=== PATIENT | female | born 1970 | race Caucasian/White ===

== ENCOUNTER → 2018-03-10 08:00 | Outpatient (CLI) | payer BC, SELFPAY | PROVIDERS: Family Provider Family Medicine; PCP Family Medicine | DX: Z23 Encounter for immunization (principal) | CPT/HCPCS: 90471; 90686 ==

== ENCOUNTER 2019-01-19 12:47 | Emergency (ER) | payer BC, SELFPAY ==
[2019-01-19 12:50] VITALS: BP 131/64; PULSE 58; RESP 18; TEMP 36.5; O2SAT 100
[2019-01-19 13:00] VITALS: BP 148/72; PULSE 61; RESP 19; O2SAT 97
[2019-01-19] MEDS: EPINEPHrine 1 MG/ML AMPUL (13:04)
--- NOTE | 2019-01-19 13:06 | ED.ALLEREA ---
HPI - Allergic Reaction General Chief complaint: Allergic Reaction Stated complaint: Anaphylaxis to bee sting Time Seen by Provider: 01/19/19 12:54 Source: patient Mode of arrival: ambulatory Limitations: no limitations History of Present Illness HPI narrative: Patient comes emergency department complaining of bee stings while looking [place] in [place]. Patient states she was stung several times both on the hand and on 1 of her legs, and that shortly thereafter, she began to feel as though her tongue was swelling. Patient states that she has never had this kind of reaction with a bee sting previously. She states she has had an itchy rash once before after staying, and after other kinds of insect envenomation is, she has experienced swelling of the affected extremity. However, she has never had any sort of or pharyngeal manifestations. Patient states she is not having trouble breathing, and can speak normally, but feels as though her tongue is stiff and large, and it is difficult to swallow. Patient denies any rash. No lightheadedness. No vomiting. No other complaints at this time. Patient had written her bike [place], and was able to ride out without difficulty before coming here. Related Data Previous Rx's Medication Instructions Recorded epinephrine [EpiPen] 0.3 mg IM Q15M PRN #1 each 01/19/19 prednisone 60 mg PO DAILY #9 tab 01/19/19 Allergies Allergy/AdvReac Type Severity Reaction Status Date / Time No Known Drug Allergies Allergy Verified 10/22/18 09:54 Review of Systems Review of Systems ROS Unobtainable: All systems reviewed & are unremarkable except as noted in HPI and below Constitutional Constitutional: Denies chills, Denies fatigue, Denies fever(s), Denies frequent falls, Denies lethargy and Denies weakness Eyes Eyes: Denies change in vision, Denies eye discharge, Denies irritation and Denies loss of vision ENT Ears, Nose, Mouth, and Throat: Denies change in voice, Denies dizziness, Denies neck pain and Denies sore throat Comments: Tongue swelling Cardiovascular Cardiovascular: Denies chest pain, Denies irregular heart rhythm, Denies lightheadedness, Denies palpitations, Denies dyspnea, Denies dyspnea on exertion and Denies orthopnea Respiratory Respiratory: Denies cough, Denies dyspnea, Denies dyspnea on exertion and Denies wheezing Gastrointestinal Gastrointestinal: Denies abdominal pain, Denies change in bowel habits, Denies diarrhea, Denies nausea and Denies vomiting Genitourinary Genitourinary: Denies hematuria, Denies flank pain, Denies urinary incontinence and Denies urinary urgency Musculoskeletal Musculoskeletal: Denies back pain, Denies muscle weakness, Denies neck pain, Denies numbness and Denies tingling Integumentary/Breasts Skin/Breast: Denies pruritus, Denies erythema, Denies rash and Denies wounds Neurologic Neurologic: Denies behavioral changes, Denies confusion, Denies dizziness, Denies frequent falls, Denies loss of vision, Denies numbness, Denies tingling and Denies weakness Psychiatric Psychiatric: Denies anxiety, Denies behavioral changes, Denies confusion, Denies depression, Denies homicidal ideation and Denies suicidal ideation Endocrine Endocrine: Denies fatigue, Denies flushing and Denies palpitations Hematologic/Lymphatic Hematologic/Lymphatic: Denies easy bruising Allergic/Immunologic Allergic/Immunologic: Denies urticaria and Denies wheezing [facility] Medical History Healthy adult (Acute) Surgical History No pertinent past surgical history (Acute) Social History Smoking Status: Never smoker Social History Smoking Status: Never smoker Exam Initial Vital Signs Initial Vital Signs: Vital Signs Temperature 97.7 F 01/19/19 12:50 Pulse Rate 58 L 01/19/19 12:50 Respiratory Rate 18 01/19/19 12:50 Blood Pressure 131/64 01/19/19 12:50 Pulse Oximetry 100 01/19/19 12:50 Const General: cooperative and well developed Nutritional Appearance: well nourished Orientation: alert, awake, oriented x3 and not confused HENPR Head: normocephalic and atraumatic Ears: external ears normal Nose: external nose normal and No nasal discharge Face and sinus: face symmetric and No dry mucous membranes Mouth: oral mucosae normal, tongue normal (No obvious edema.) and moist mucous membranes Teeth and gingiva: dentition normal Throat: tonsils normal and uvula midline (No uvular enlargement) Eyes General: appearance normal, both eyes and all related structures Eyelids: eyelids normal Conjunctivae: conjunctivae normal Sclera: sclerae normal Pupils: PERRL EOM: EOM intact bilaterally Neck Neck: normal visual inspection, trachea midline, No lymphadenopathy, No midline deformity and No JVD Lymphatic: No lymphedema Chest Chest: normal inspection of the chest Resp Effort & Inspection: normal respiratory effort, able to speak in complete sentences, no respiratory distress and no use of accessory muscles Auscultation: clear to auscultation bilaterally, no rales, no rhonchi and no wheezes Cardio Rate: regular rate Rhythm: regular rhythm Heart Sounds: no click, no gallops, no murmurs and no rubs Pulses: normal peripheral pulses GI Inspection: non-distended Palpation: soft, no hepatosplenomegaly, No guarding, No pulsatile mass and No tender Auscultation: normal bowel sounds Back/Spine/Pelvis Back: No CVA tenderness Cervical Spine: cervical ROM normal and No pain with cervical ROM Thoracic/Lumbar Spine: thoracic and lumbar spine normal to inspection Skin General: no rashes or lesions noted, No jaundice and No petechiae Neuro General: alert, oriented x3, gait normal and no focal motor deficits Speech: speech normal Extrem General: full ROM, no clubbing, cyanosis or edema, no pedal edema and no calf tenderness Psych Appearance: well kempt Mental Status: mental status grossly normal Attitude: cooperative Thought Content: normal and suicidality Judgment: judgment good Course Course Course Narrative: Patient was treated symptomatically in the emergency department with IM epinephrine, Decadron, and Pepcid. She had already taken Benadryl on the trail. Patient began to feel better within minutes of receiving epinephrine. She was observed in the emergency department for approximately an hour and found to be doing better. Patient was deemed stable for discharge home. We have discussed home management of symptoms, as well as the usual indications for return. Orders Ordered: Discontinued Medications Dexamethasone (Decadron) 10 mg IV NOW ONE Stop: 01/19/19 13:06 Last Admin: 01/19/19 13:11 Dose: 10 mg Documented by: JOSE Famotidine (Pepcid) 20 mg in 50 mls @ 200 mls/hr IV NOW ONE Stop: 01/19/19 13:19 Last Infusion: 01/19/19 13:38 Dose: 0 mls/hr Documented by: Admin: 01/19/19 13:11 Dose: 200 mls/hr Documented by: JOSE Vital Signs Vital signs: Vital Signs - 8 hr 01/19/19 12:50 Temperature 97.7 F Pulse Rate 58 L Respiratory Rate 18 Blood Pressure 131/64 Pulse Oximetry 100 MDM - Allergic Reaction Medical Records Attestation: I reviewed the patient's medical records. Discharge Plan Departure Patient Disposition: Home Clinical Impression: Allergic reaction to bee sting Anaphylaxis Qualifiers: Encounter type: initial encounter Qualified Code(s): T78.2XXA - Anaphylactic shock, unspecified, initial encounter Discharge Date/Time: 01/19/19 14:20 Instructions: DI for Anaphylaxis Prescriptions: New prednisone 20 mg tablet 60 mg PO DAILY Qty: 9 RF: 0 epinephrine [EpiPen] 0.3 mg/0.3 mL auto-injector 0.3 mg IM Q15M PRN (Reason: anaphylaxis) Qty: 1 RF: 0 Referrals: Vitaliy Ornelas MD [Primary Care Provider] -
[2019-01-19] MEDS: DEXAMETHASONE 10 MG/ML VIAL IV (13:11)
[2019-01-19] MEDS: FAMOTIDINE 20 MG/50 ML PIGGYBACK 200 MG IV (13:11)
[2019-01-19 14:18] VITALS: BP 119/71; PULSE 52; RESP 16; O2SAT 97
== END 2019-01-19 14:20 | disposition home or self-care (01) ==
PROVIDERS: Emergency Provider Emergency Medicine; PCP Family Medicine
DX: T63.441A Toxic effect of venom of bees, accidental (unintentional), initial encounter (principal)
CPT/HCPCS: 96365; 96375; 99283; 99284; J0171; J1100

== ENCOUNTER 2019-01-20 19:41 | Emergency (ER) | payer BC, SELFPAY ==
[2019-01-20 19:52] VITALS: BP 132/71; PULSE 60; RESP 15; TEMP 36.6; O2SAT 98; BMI 25.8
--- NOTE | 2019-01-20 19:57 | ED.ALLEREA ---
HPI - Allergic Reaction <MATIAS Strong - Last Filed: 01/20/19 22:25> General Chief complaint: Allergic Reaction Stated complaint: thinks having an allergic reaction Time Seen by Provider: 01/20/19 19:44 Source: patient Mode of arrival: ambulatory Limitations: no limitations History of Present Illness HPI narrative: 48-year-old female presents emergency department stay complaining of airway swelling. She states she was seen yesterday in the emergency department after being stung multiple times by bees on experience tongue swelling. She was treated in the emergency department with epinephrine, Solu-Medrol, Benadryl, and famotidine. Patient returned home, she took 1 Benadryl this morning and another Benadryl around 5:00 p.m.. However, 20 minutes ago she started to experience throat swelling and return to the ED. She denies any shortness of breath, chest pain, recurrent bee stings, dizziness, syncope, abdominal pain, vomiting, nausea, or other concerning symptoms. Related Data Previous Rx's Medication Instructions Recorded epinephrine [EpiPen] 0.3 mg IM Q15M PRN #1 each 01/19/19 prednisone 60 mg PO DAILY #9 tab 01/19/19 epinephrine 0.3 mg IM Q15M PRN #2 each 01/20/19 prednisone 50 mg PO DAILY 5 Days #5 tab 01/20/19 Allergies Allergy/AdvReac Type Severity Reaction Status Date / Time No Known Drug Allergies Allergy Verified 01/20/19 19:52 Review of Systems <MATIAS Strong - Last Filed: 01/20/19 22:25> Review of Systems Narrative: REVIEW OF SYSTEMS: GENERAL: Denies fever or chills. HENT: Patient reports a sensation of airway swelling, see HPI. No head trauma. EYES: No loss of vision, double vision, eye pain, or irritation. CARDIOVASCULAR: No chest pain or syncope. RESPIRATORY: No shortness of breath or cough. GASTROINTESTINAL: No nausea, vomiting, diarrhea, or constipation. GENITOURINARY: No flank pain or dysuria. MUSCULOSKELETAL: No pain, weakness, or deformities. INTEGUMENTARY: No rash, lesions, or pruritus. NEURO: No numbness, tingling, memory loss, or confusion. PSYCH: No behavior or mood changes. PFSH <MATIAS Strong - Last Filed: 01/20/19 22:25> Medical History Healthy adult (Acute) Surgical History No pertinent past surgical history (Acute) Social History Smoking Status: Never smoker Social History Smoking Status: Never smoker Exam <MATIAS Strong - Last Filed: 01/20/19 22:25> Initial Vital Signs Initial Vital Signs: Vital Signs Temperature 97.9 F 01/20/19 19:52 Pulse Rate 60 01/20/19 19:52 Respiratory Rate 15 01/20/19 19:52 Blood Pressure 132/71 01/20/19 19:52 Pulse Oximetry 98 01/20/19 19:52 PHYSICAL EXAMINATION: GENERAL: Well groomed, alert, and cooperative. Answers questions promptly and appropriately. Vital signs noted. Patient is speaking in full sentences during initial examination. HENT: Normocephalic, atraumatic. Ear canals patent. Oral mucosa is pink and moist. Oropharynx has slight erythema, tongue was not enlarged, patient was maintaining secretions. After administration of epi patient stated that her throat was swelling decreased. Patient was able to drink an eat foods during her stay in the emergency department. She states she continued to feel some throat irritation during observation, this did not increase or decrease during her stay.. EYES: Conjunctiva pink, sclera white, no periorbital swelling. CHEST: Normal to inspection and without deformities. CARDIOVASCULAR: S1 and S2 sounds normal. Regular rate and rhythm, no murmurs, clicks, or bruits. No pedal edema. RESPIRATORY: Normal respiratory rate, trachea midline, airway patent. No stridor, nasal flaring or accessory muscle use. Lungs are clear in all khalil without wheeze, rhonchi, or crackles. GASTROINTESTINAL: Bowel sounds normoactive. Abdomen is soft and non-tender. No organomegaly. MUSCULOSKELETAL: Normal gait and coordination. Equal tone and mass bilaterally. EXTREMITIES: CMS intact. Moves all extremities. SKIN: Warm, dry, soft, appropriate color for ethnicity. No lesions, rashes, or wounds. NEURO: Alert and Oriented X 3. Good coordination. No ataxia, or sensory deficits, or cognitive issues. PSYCH: Appropriate affect and mood. <Willis Wolf DO - Last Filed: 01/20/19 23:59> Initial Vital Signs Initial Vital Signs: Vital Signs Temperature 97.9 F 01/20/19 19:52 Pulse Rate 60 01/20/19 19:52 Respiratory Rate 15 01/20/19 19:52 Blood Pressure 132/71 01/20/19 19:52 Pulse Oximetry 98 01/20/19 19:52 Course <Madhavi JacksonMATIAS - Last Filed: 01/20/19 22:25> Course Course Narrative: Patient was given 0.3 mg of I M epinephrine after administration she reported a decrease in throat swelling. She was also given a L fluid, Pepcid, Benadryl, and 125 of Solu-Medrol. After the initial decrease the swelling patient had some irritation and sensations in the back of her throat that did not decrease or increase during her stay in the emergency department. Patient was observed for over 2 hours without change. Patient was able to drink and eat before discharge. She reported some throat discomfort while drinking cranberry juice. A GI cocktail was administered without much change. Serial reexaminations of her throat and lungs occurred-patient had no wheezes any time. Her tongue was not enlarged at any time. The only observation in her mouth was slight erythema to the back for oropharynx. Once patient was discharged her voice was not hoarse, she was talking in full sentences, and she was able tolerate her secretions. I consulted with Dr. Wolf care at this time of her discharge, he concurred with the plan of care. Discussed with patient that signs and has been over 24 hours from the initial bee sting that she was safe to return home. She may continue to have some slight throat irritation for which she she is to take the prednisone for. She also reported she has epinephrine at home as well. The patient has an appointment tomorrow with her primary care provider at 9:00 a.m. which she plans to attend for re-evaluation. Patient was able to ambulate around the department without dizziness. She states her will be at home with her as well. Very strict return precautions were given. Orders Ordered: Discontinued Medications Al Hydrox/Mg Hydrox/Simethicone 20 ml/ Lidocaine HCl 15 ml 0 ml PO NOW ONE Stop: 01/20/19 21:16 Last Admin: 01/20/19 21:32 Dose: 35 ml Documented by: [facility] Diphenhydramine HCl (Benadryl) 25 mg IV NOW ONE Stop: 01/20/19 21:19 Last Admin: 01/20/19 21:31 Dose: 25 mg Documented by: [facility] Epinephrine HCl (Adrenalin) 0.3 mg IM NOW ONE Stop: 01/20/19 19:54 Last Admin: 01/20/19 20:00 Dose: 0.3 mg Documented by: [facility] Famotidine (Pepcid) 20 mg in 50 mls @ 200 mls/hr IV NOW ONE Stop: 01/20/19 20:10 Last Infusion: 01/20/19 20:18 Dose: 0 mls/hr Documented by: [facility] Admin: 01/20/19 20:01 Dose: 200 mls/hr Documented by: [facility] Sodium Chloride (Normal Saline 0.9%) 1,000 mls @ 1,000 mls/hr IV BOLUS ONE Stop: 01/20/19 20:56 Last Infusion: 01/20/19 21:10 Dose: 0 mls/hr Documented by: [facility] Admin: 01/20/19 20:00 Dose: 1,000 mls/hr Documented by: [facility] Lidocaine HCl (Viscous Lidocaine 2%) 15 ml PO NOW ONE Stop: 01/20/19 21:25 Last Admin: 01/20/19 21:33 Dose: Not Given Documented by: [facility] Methylprednisolone (Solu-Medrol 125 Mg Vial) 125 mg IV NOW ONE Stop: 01/20/19 19:54 Last Admin: 01/20/19 20:01 Dose: 125 mg Documented by: [facility] Ondansetron HCl (Zofran) 4 mg IV NOW ONE Stop: 01/20/19 21:16 Last Admin: 01/20/19 21:32 Dose: 4 mg Documented by: [facility] Prednisone (Deltasone 20 Mg Prepack) 1 bottle MISC SEEINSTR ONE Stop: 01/20/19 22:07 Last Admin: 01/20/19 22:31 Dose: 1 bottle [facility]: [facility] Vital Signs Vital signs: Vital Signs - 8 hr 01/20/19 19:52 01/20/19 20:06 01/20/19 21:11 Temperature 97.9 F Pulse Rate 60 58 L 60 Respiratory Rate 15 24 19 Blood Pressure 132/71 Blood Pressure [Left Arm] 125/66 116/60 Pulse Oximetry 98 99 100 01/20/19 21:49 Temperature Pulse Rate 65 Respiratory Rate 19 Blood Pressure Blood Pressure [Left Arm] 116/62 Pulse Oximetry 96 <Willis Wolf, DO - Last Filed: 01/20/19 23:59> Orders Ordered: Discontinued Medications Al Hydrox/Mg Hydrox/Simethicone 20 ml/ Lidocaine HCl 15 ml 0 ml PO NOW ONE Stop: 01/20/19 21:16 Last Admin: 01/20/19 21:32 Dose: 35 ml Documented by: [facility] Diphenhydramine HCl (Benadryl) 25 mg IV NOW ONE Stop: 01/20/19 21:19 Last Admin: 01/20/19 21:31 Dose: 25 mg Documented by: [facility] Epinephrine HCl (Adrenalin) 0.3 mg IM NOW ONE Stop: 01/20/19 19:54 Last Admin: 01/20/19 20:00 Dose: 0.3 mg Documented by: [facility] Famotidine (Pepcid) 20 mg in 50 mls @ 200 mls/hr IV NOW ONE Stop: 01/20/19 20:10 Last Infusion: 01/20/19 20:18 Dose: 0 mls/hr Documented by: [facility] Admin: 01/20/19 20:01 Dose: 200 mls/hr Documented by: [facility] Sodium Chloride (Normal Saline 0.9%) 1,000 mls @ 1,000 mls/hr IV BOLUS ONE Stop: 01/20/19 20:56 Last Infusion: 01/20/19 21:10 Dose: 0 mls/hr Documented by: [facility] Admin: 01/20/19 20:00 Dose: 1,000 mls/hr Documented by: [facility] Lidocaine HCl (Viscous Lidocaine 2%) 15 ml PO NOW ONE Stop: 01/20/19 21:25 Last Admin: 01/20/19 21:33 Dose: Not Given Documented by: [facility] Methylprednisolone (Solu-Medrol 125 Mg Vial) 125 mg IV NOW ONE Stop: 01/20/19 19:54 Last Admin: 01/20/19 20:01 Dose: 125 mg Documented by: RENE Ondansetron HCl (Zofran) 4 mg IV NOW ONE Stop: 01/20/19 21:16 Last Admin: 01/20/19 21:32 Dose: 4 mg Documented by: RENE Prednisone (Deltasone 20 Mg Prepack) 1 bottle MISC SEEINSTR ONE Stop: 01/20/19 22:07 Last Admin: 01/20/19 22:31 Dose: 1 bottle Documented by: [facility] Vital Signs Vital signs: Vital Signs - 8 hr 01/20/19 19:52 01/20/19 20:06 01/20/19 21:11 Temperature 97.9 F Pulse Rate 60 58 L 60 Respiratory Rate 15 24 19 Blood Pressure 132/71 Blood Pressure [Left Arm] 125/66 116/60 Pulse Oximetry 98 99 100 01/20/19 21:49 Temperature Pulse Rate 65 Respiratory Rate 19 Blood Pressure Blood Pressure [Left Arm] 116/62 Pulse Oximetry 96 MDM - Allergic Reaction <MATIAS Strong - Last Filed: 01/20/19 22:25> Medical Records Attestation: I reviewed the patient's medical records. Lab Data Attestation: I reviewed the patient's lab results. MDM Narrative Medical decision making narrative: I suspect that patient's symptoms are ongoing from yesterday's reaction. This is most likely due to the fact that patient was not aware that she had a prednisone prescription and did not have any continued steroids. Since the initial urgent reaction was well over 24 hours ago and her throat discomfort has been very stable throughout the emergency department stay, she is a candidate for discharge. She is hemodynamically stable, does not appear to be in any distress, and does her secretions, and her exam is completely benign. Differential also includes the start of a viral illness, acid reflux from allergic reaction causing her discomfort, and postnasal drip causing her discomfort. Refractory anaphylaxis that of likely as patient did not exhibit hypotension, hives, confusion, dizziness, swollen time, or other concerning symptoms. Patient is also started on steroids, she was given a prepack to take home. She also reports she has epinephrine at home. Discharge Plan Departure Patient Disposition: Home Clinical Impression: Allergic reaction to bee sting Discharge Date/Time: 01/20/19 22:38 Instructions: DI for Anaphylaxis Activity Restrictions/Additional Instructions: Thank you for entrusting me with your care today. As discussed, it appears you had another anaphylactic reaction to the bee stings from yesterday. You were given a dose of epinephrine, Solu-Medrol, Pepcid, and Benadryl. Please take the prednisone as prescribed for for 5 days and follow up with your primary care provider tomorrow as scheduled. You may take Claritin, Benadryl, another antihistamine as well. Additionally, if he continued to have acid reflux or abdominal pain you can take Pepcid or Zantac. If any symptoms worsen such as shortness of breath, increased airway irritation, dizziness, syncope, hives, erythema, or other concerning symptoms please return to the emergency department immediately. I have also included a prescription for an epinephrine pen please keep this with you at all times especially outdoors. Prescriptions: New prednisone 50 mg tablet 50 mg PO DAILY 5 Days Qty: 5 RF: 0 epinephrine 0.3 mg/0.3 mL auto-injector 0.3 mg IM Q15M PRN (Reason: anaphylaxis) Qty: 2 RF: 0 No Action prednisone 20 mg tablet 60 mg PO DAILY Qty: 9 RF: 0 epinephrine [EpiPen] 0.3 mg/0.3 mL auto-injector 0.3 mg IM Q15M PRN (Reason: anaphylaxis) Qty: 1 RF: 0 Referrals: Vitaliy Ornelas MD [Primary Care Provider] - <Willis Wolf DO - Last Filed: 01/20/19 23:59> Sign Out Provider Sign Out Attestation: I was available for consultation during this patient's emergency department encounter
[2019-01-20] MEDS: EPINEPHrine 1 MG/ML AMPUL 0.3 MG IM (20:00)
[2019-01-20] MEDS: SODIUM CHLORIDE 0.9% 1,000 ML 1000 ML IV (20:00)
[2019-01-20] MEDS: methylPREDNISolone 125 MG/2 ML VIAL IV (20:01)
[2019-01-20] MEDS: FAMOTIDINE 20 MG/50 ML PIGGYBACK 200 MG IV (20:01)
[2019-01-20 20:06] VITALS: BP 125/66; PULSE 58; RESP 24; O2SAT 99
[2019-01-20 21:11] VITALS: BP 116/60; PULSE 60; RESP 19; O2SAT 100
[2019-01-20] MEDS: diphenhydrAMINE 50 MG/ML VIAL 25 MG IV (21:31)
[2019-01-20] MEDS: ONDANSETRON 4 MG/2 ML INJ IV (21:32)
[2019-01-20] MEDS: MAG HYDROX/ALUMINUM/SIMETH SUS 20 ML, LIDOCAINE VISCOUS 2% 15 ML PO (21:32)
[2019-01-20 21:49] VITALS: BP 116/62; PULSE 65; RESP 19; O2SAT 96
[2019-01-20] MEDS: predniSONE 20 MG PREPACK 1 BOTTLE MISC (22:31)
== END 2019-01-20 22:38 | disposition home or self-care (01) ==
PROVIDERS: Emergency Provider Emergency Medicine; PCP Family Medicine
DX: T63.441A Toxic effect of venom of bees, accidental (unintentional), initial encounter (principal); R22.0 Localized swelling, mass and lump, head
CPT/HCPCS: 96361; 96365; 96372; 96375; 99283; 99284; J0171; J1200; J2405; J2930

== ENCOUNTER → 2019-03-14 15:07 | Outpatient (CLI) | payer BC, SELFPAY | PROVIDERS: PCP Family Medicine | DX: Z23 Encounter for immunization (principal) | CPT/HCPCS: 90471; 90686 ==

== ENCOUNTER → 2019-03-24 08:34 | Outpatient (CLI) | payer BC, SELFPAY | PROVIDERS: PCP Family Medicine; Visit Provider Nurse Practitioner Family | DX: J02.9 Acute pharyngitis, unspecified (principal) | CPT/HCPCS: 87070 ==

== ENCOUNTER → 2019-05-18 14:36 | Outpatient (CLI) | payer BC, SELFPAY ==
--- NOTE | 2019-05-18 14:37 | DI.MG.S_ITS ---
BILATERAL DIGITAL SCREENING MAMMOGRAM 3D/2D WITH CAD: 05/18/2019 CLINICAL: Baseline exam. Routine screening. No prior exams were available for comparison. The tissue of both breasts is heterogeneously dense. This may lower the sensitivity of mammography. Current study was also evaluated with a Computer Aided Detection (CAD) system. No significant masses, calcifications, or other findings are seen in either breast. IMPRESSION: NEGATIVE There is no mammographic evidence of malignancy. A 1 year screening mammogram is recommended. This exam was interpreted at Station ID: [id number]. NOTE: For mammograms, a report in lay terms will be sent to the patient. Approximately 15% of breast malignancies will not be visualized mammographically. In the management of a palpable breast mass, a negative mammogram must not discourage biopsy of a clinically suspicious lesion. Electronically Signed By: Willa mir/ben:05/18/2019 15:37:44 letter sent: Normal Exam ACR BI-RADS Category 1: Negative 3341F
== END ==
PROVIDERS: PCP Family Medicine; Visit Provider Family Medicine
DX: Z12.31 Encounter for screening mammogram for malignant neoplasm of breast (principal)
CPT/HCPCS: 77063; 77067

== ENCOUNTER → 2019-11-14 15:12 | Outpatient (CLI) | payer BC, SELFPAY | PROVIDERS: PCP Family Medicine; Visit Provider Family Medicine | DX: B83.9 Helminthiasis, unspecified (principal) | CPT/HCPCS: 87177 ==

== ENCOUNTER → 2020-02-21 07:51 | Outpatient (CLI) | payer BC, SELFPAY | PROVIDERS: PCP Family Medicine; Referring Provider Internal Medicine; Visit Provider Internal Medicine | DX: Z23 Encounter for immunization (principal) | CPT/HCPCS: 90471; 90686 ==

== ENCOUNTER → 2020-05-16 08:54 | Outpatient (CLI) | payer BC, SELFPAY ==
[2020-05-16] MEDS: COVID-19 VACC(MODERNA-1)/PF 100 MCG/0.5 ML VIAL IM (08:58)
== END ==
PROVIDERS: PCP Family Medicine; Visit Provider Internal Medicine
DX: Z23 Encounter for immunization (principal)
CPT/HCPCS: 0011A; 91301

== ENCOUNTER → 2020-06-12 08:50 | Outpatient (CLI) | payer BC, SELFPAY ==
[2020-06-12] MEDS: COVID-19 VACC #2, MRNA(MOD) 100 MCG/0.5 ML VIAL IM (08:53)
== END ==
PROVIDERS: PCP Family Medicine; Visit Provider Internal Medicine
DX: Z23 Encounter for immunization (principal)
CPT/HCPCS: 0012A; 91301

== ENCOUNTER → 2020-07-24 11:57 | Outpatient (CLI) | payer BC, SELFPAY ==
--- NOTE | 2020-07-24 | DI.MG.S_ITS ---
BILATERAL DIGITAL SCREENING MAMMOGRAM 3D/2D WITH CAD: 07/24/2020 CLINICAL: Routine screening. Comparison is made to exam dated: 05/18/2019 [facility]. The tissue of both breasts is heterogeneously dense. This may lower the sensitivity of mammography. Current study was also evaluated with a Computer Aided Detection (CAD) system. No significant masses, calcifications, or other findings are seen in either breast. There has been no significant interval change. IMPRESSION: NEGATIVE There is no mammographic evidence of malignancy. A 1 year screening mammogram is recommended. This exam was interpreted at Station ID: [id number]. NOTE: For mammograms, a report in lay terms will be sent to the patient. Approximately 15% of breast malignancies will not be visualized mammographically. In the management of a palpable breast mass, a negative mammogram must not discourage biopsy of a clinically suspicious lesion. Electronically Signed By: Naveen savage/ben:07/24/2020 12:28:29 letter sent: Normal Exam ACR BI-RADS Category 1: Negative [id number]
== END ==
PROVIDERS: PCP Family Medicine; Referring Provider Family Medicine; Visit Provider Family Medicine
DX: Z12.31 Encounter for screening mammogram for malignant neoplasm of breast (principal)
CPT/HCPCS: 77063; 77067

== ENCOUNTER → 2020-11-29 15:18 | Outpatient (CLI) | payer BC, SELFPAY ==
[2020-11-29 15:50] LABS: COVID19 -Nasal RAPID Negative (Negative)
== END ==
PROVIDERS: PCP Family Medicine; Visit Provider Physician Assistant
DX: Z20.822 Contact with and (suspected) exposure to COVID-19 (principal); J02.9 Acute pharyngitis, unspecified; R51.9 Headache, unspecified; R53.83 Other fatigue
CPT/HCPCS: 87635

== ENCOUNTER → 2021-03-07 12:06 | Outpatient (CLI) | payer BC, SELFPAY | PROVIDERS: PCP Family Medicine; Referring Provider Internal Medicine; Visit Provider Internal Medicine | DX: Z23 Encounter for immunization (principal) | CPT/HCPCS: 90471; 90686 ==

== ENCOUNTER → 2021-07-31 16:37 | Outpatient (CLI) | payer OTHER, SELFPAY ==
--- NOTE | 2021-07-31 16:40 | DI.MG.S_ITS ---
BILATERAL DIGITAL SCREENING MAMMOGRAM 3D/2D WITH CAD: 07/31/2021 CLINICAL: Routine screening. Comparison is made to exams dated: 05/18/2019 mammogram and 07/24/2020 mammogram - [facility]. The tissue of both breasts is heterogeneously dense. This may lower the sensitivity of mammography. Current study was also evaluated with a Computer Aided Detection (CAD) system. No significant masses, calcifications, or other findings are seen in either breast. There has been no significant interval change. IMPRESSION: NEGATIVE There is no mammographic evidence of malignancy. A 1 year screening mammogram is recommended. This exam was interpreted at Station ID: [id number]. NOTE: For mammograms, a report in lay terms will be sent to the patient. Approximately 15% of breast malignancies will not be visualized mammographically. In the management of a palpable breast mass, a negative mammogram must not discourage biopsy of a clinically suspicious lesion. Electronically Signed By: Claudio Ortiz M.D. [facility] [place]/ben:08/01/2021 08:35:55 letter sent: Normal Exam ACR BI-RADS Category 1: Negative [id number]
== END ==
PROVIDERS: PCP Family Medicine; Visit Provider Family Medicine
DX: Z12.31 Encounter for screening mammogram for malignant neoplasm of breast (principal)
CPT/HCPCS: 77063; 77067

== ENCOUNTER → 2021-12-17 11:17 | Outpatient (CLI) | payer OTHER, SELFPAY ==
--- NOTE | 2021-12-17 11:18 | DI.RAD.S_ITS ---
PROCEDURE: XR WRIST LT MIN 3V INDICATIONS: fall TECHNIQUE: 4 views of the wrist were acquired. COMPARISON: None. FINDINGS: Bones: No fractures or dislocations. No suspicious bony lesions. Scaphoid view: Scaphoid is intact. Soft tissues: No suspicious soft tissue calcifications. IMPRESSION: No fracture. No acute osseous lesion. If symptoms and/or clinical suspicion for pathology persists, further assessment with repeat radiographs (7-10 days) or advanced imaging (e.g. CT, MRI or bone scan) should be considered. Dictated by: Karina Loco MD, PhD on 12/17/2021 at 10:43 Approved by: Karina Loco MD, PhD on 12/17/2021 at 10:43
== END ==
PROVIDERS: PCP Family Medicine; Referring Provider Nurse Practitioner Critical Care Medicine; Visit Provider Nurse Practitioner Critical Care Medicine
DX: M25.532 Pain in left wrist (principal)
CPT/HCPCS: 73110

== ENCOUNTER → 2023-04-08 12:11 | Outpatient (CLI) | payer BC, SELFPAY | PROVIDERS: PCP Family Medicine; Referring Provider Physician Assistant; Visit Provider Physician Assistant | DX: A09 Infectious gastroenteritis and colitis, unspecified (principal) | CPT/HCPCS: 87045; 87177; 87329; 87899 ==

== ENCOUNTER → 2023-04-30 09:03 | Outpatient (CLI) | payer BC, SELFPAY ==
[2023-04-30 10:40] LABS: Add Manual Diff / Slide Review NO; Basophils Absolute Auto 100 /uL (0-100); Basophils Percent Auto 1.5 % (0-2); Eosinophils Absolute Auto 300 /uL (0-450); Hematocrit 41.7 % (36-46); Hemoglobin 14.2 g/dL (12.0-16.0); Lymphocytes Absolute Auto 2200 /uL (1100-4500); Lymphocytes Percent Auto 32.2 % (25-40); Mean Corpuscular HGB Conc 34.1 % (30-36); Mean Corpuscular Hemoglobin 29.3 PG (26-34); Monocytes Absolute Auto 600 /uL (0-900); Monocytes Percent Auto 9.6 % (3-14); Neutrophils Absolute Auto 3500 /uL (1500-7000); Neutrophils Percent Auto 51.7 % (50-75); Platelet Count 573 X10^3/uL (150-400); Red Blood Cell Count 4.85 X10^6/uL (4.0-5.2); Red Cell Distribution Width 13.6 % (11.6-14.8); White Blood Cell Count 6.7 X10^3/uL (4.5-11.0)
[2023-04-30 10:43] LABS: Alanine Aminotransferase 22 IU/L (<35); Albumin 4.3 g/dL (3.5-5.0); Albumin Globulin Ratio 1.5 (1.0-2.8); Alkaline Phosphatase 83 U/L (38-126); Aspartate Aminotransferase 32 IU/L (14-36); Bilirubin Total 0.5 mg/dL (0.2-1.3); Blood Urea Nitrogen 15 mg/dL (7-17); Calcium 9.7 mg/dL (8.4-10.2); Carbon Dioxide 29 mmol/L (22-32); Chloride 102 mmol/L (98-107); Estimated Glomerular Filt Rate > 60 mL/min (>60); Globulin 2.9 g/dL (1.7-4.1); Glucose 101 mg/dL (70-100); HEMOLYSIS < 15 (0-50); Potassium 4.4 mmol/L (3.4-5.1); Sodium 139 mmol/L (137-145); Total Protein 7.2 g/dL (6.3-8.2)
== END ==
PROVIDERS: PCP Family Medicine; Referring Provider Family Medicine; Visit Provider Family Medicine
DX: B89 Unspecified parasitic disease (principal)
CPT/HCPCS: 36415; 80053; 85025

== ENCOUNTER → 2023-05-14 14:28 | Outpatient (CLI) | payer BC, SELFPAY ==
[2023-05-14 18:56] LABS: Hepatitis B Surface Antigen NEGATIVE s/c (NEGATIVE)
[2023-05-15 11:17] LABS: Varicella IgG Antibody >4000 index (Immune >165)
[2023-05-18 13:05] LABS: QuantiFERON Mitogen Value >10.00 IU/mL (.); QuantiFERON TB Gold Plus Negative (Negative); QuantiFERON TB1 Ag Value 0.02 IU/mL (.); QuantiFERON TB2 Ag Value 0.03 IU/mL (.)
== END ==
PROVIDERS: PCP Family Medicine; Referring Provider Family Medicine; Visit Provider Family Medicine
DX: B89 Unspecified parasitic disease (principal); A07.1 Giardiasis [lambliasis]
CPT/HCPCS: 36415; 86480; 86787; 87340

== ENCOUNTER → 2023-06-03 11:31 | Outpatient (CLI) | payer BC, SELFPAY | LOC: LAB 11:33 | PROVIDERS: PCP Family Medicine; Referring Provider Internal Medicine Infectious Disease; Visit Provider Internal Medicine Infectious Disease | DX: B83.9 Helminthiasis, unspecified (principal) | CPT/HCPCS: 87177 ==

== ENCOUNTER → 2023-06-04 11:30 | Outpatient (CLI) | payer BC, SELFPAY | PROVIDERS: PCP Family Medicine; Referring Provider Internal Medicine Infectious Disease; Visit Provider Internal Medicine Infectious Disease | DX: B83.9 Helminthiasis, unspecified (principal) | CPT/HCPCS: 87177 ==

== ENCOUNTER → 2023-06-08 10:41 | Outpatient (CLI) | payer BC, SELFPAY | LOC: LAB 10:41 | PROVIDERS: PCP Family Medicine; Referring Provider Internal Medicine Infectious Disease; Visit Provider Internal Medicine Infectious Disease | DX: B83.9 Helminthiasis, unspecified (principal) | CPT/HCPCS: 87177 ==

== ENCOUNTER → 2023-06-14 12:55 | Outpatient (CLI) | payer BC, SELFPAY | PROVIDERS: PCP Family Medicine; Visit Provider Nurse Practitioner Family | DX: R30.9 Painful micturition, unspecified (principal); R30.0 Dysuria | CPT/HCPCS: 87086; 87210 ==

== ENCOUNTER 2023-06-18 16:19 | Emergency (ER) | payer BC, SELFPAY ==
[2023-06-18] VITALS (7 sets, daily range): BP systolic 116–132; BP diastolic 69–83; PULSE 71–78; RESP 18; TEMP 36.6; O2SAT 98–100; BMI 26.6
[2023-06-18 17:02] LABS: Add Manual Diff / Slide Review NO; Basophils Absolute Auto 100 /uL (0-100); Basophils Percent Auto 1.1 % (0-2); Eosinophils Absolute Auto 0 /uL (0-450); Eosinophils Percent Auto 0.6 % (2-4); Hematocrit 39.3 % (36-46); Hemoglobin 13.3 g/dL (12.0-16.0); Lymphocytes Absolute Auto 2100 /uL (1100-4500); Lymphocytes Percent Auto 23.4 % (25-40); Mean Corpuscular HGB Conc 33.8 % (30-36); Mean Corpuscular Hemoglobin 28.9 PG (26-34); Mean Corpuscular Volume 85.6 fL (80-100); Monocytes Absolute Auto 800 /uL (0-900); Monocytes Percent Auto 8.7 % (3-14); Neutrophils Absolute Auto 6000 /uL (1500-7000); Neutrophils Percent Auto 66.2 % (50-75); Platelet Count 538 X10^3/uL (150-400)
--- NOTE | 2023-06-18 17:13 | ED_ITS ---
HPI - Abdominal Pain <Froy Lee MD - Last Filed: 06/25/23 09:03> General Chief Complaint: Abdominal Pain Stated Complaint: colon pain/N/increasing pain 3wk Time Seen by Provider: 06/18/23 16:56 History of Present Illness HPI narrative: Patient here with . Complains ongoing worsening midline pelvic pain. Patient has history of Giardia and helminth infection March/April of last year. Patient did follow up with Infectious Disease at [facility]. Patient sees primary care doctor Johnson. Patient was on albendazole for treatment. She states she did observe worms in stool passage at 1 point last year. She had traveled with her to remote area of [place] where she contracted the parasites. She has been doing well since treatment. However 3 weeks ago pain returned. No black or bloody stools. No worms noted in stools. History of colonoscopy less than 5 years, no history of diverticulosis or diverticulitis. Patient does have urinary urgency but no dysuria Related Data Home Medications Medication Instructions Recorded Confirmed mirtazapine 7.5 mg tablet 7.5 mg PO BEDTIME PRN 01/21/19 06/14/23 paroxetine HCl 40 mg tablet 20 mg PO DAILY 05/21/22 06/14/23 lisdexamfetamine 70 mg capsule 70 mg PO DAILY 04/07/23 06/14/23 (Vyvanse) Previous Rx's Medication Instructions Recorded epinephrine 0.3 mg/0.3 mL 0.3 mg (0.3 mL) IM Q15M PRN 01/20/19 injection, auto-injector anaphylaxis 3 doses #2 ea ondansetron HCl 4 mg tablet 4 mg PO Q8H #30 tabs 06/20/23 Allergies Allergy/AdvReac Type Severity Reaction Status Date / Time bee venom protein (honey bee) Allergy Anaphylaxis Verified 06/24/23 09:04 Review of Systems <Froy Lee MD - Last Filed: 06/25/23 09:03> Review of Systems Narrative: GENERAL: negative chills, fatigue, malaise, fever, sweats. HEENT: negative sinus pain, ear pain, sore throat RESPIRATORY: negative dyspnea, cough CARDIOVASCULAR: negative chest pain, palpitations GASTROINTESTINAL: negative nausea, vomiting, positive abdominal pain : negative dysuria, frequency, hematuria MUSCULOSKELETAL: negative muscle or bony pain SKIN: negative rash, skin lesions NEUROLOGIC: negative weakness, numbness ROS Unobtainable: All systems reviewed & are unremarkable except as noted in HPI and below Patient History <Froy Lee MD - Last Filed: 06/25/23 09:03> Medical History Vaginal delivery Healthy adult Surgical History No pertinent past surgical history Social History marital status: Smoking Status: Never smoker alcohol intake: current (ON OCCASION ) substance use type: does not use Smoking Status: Never smoker alcohol intake frequency: a few times a week Substance Use Type: does not use Exam <Froy Lee MD - Last Filed: 06/25/23 09:03> Narrative Exam Narrative: GENERAL: in no distress, not toxic not dyspneic HEAD: Normocephalic. EYES: Pupils equal round ENT: Mucous membranes moist. NECK: Trachea midline. CARDIOVASCULAR: Regular rate and rhythm RESPIRATORY: Clear to auscultation. Breath sounds equal bilaterally. No wheezes, rales, or rhonchi. GASTROINTESTINAL: Abdomen soft, mild suprapubic tenderness. No pain out of portion exam. Bowel sounds are present. No peritoneal signs. No CVA tenderness. EXTREMITIES: No gross deformities. BACK: No flank tenderness. NEURO: AOx4. SKIN: Warm and dry PSYCH: Not anxious, is cooperative Initial Vital Signs Initial Vital Signs: Vital Signs Temperature 97.8 F 06/18/23 16:21 Pulse Rate 73 06/18/23 16:21 Respiratory Rate 18 06/18/23 16:21 Blood Pressure 132/83 06/18/23 16:21 Pulse Oximetry 98 06/18/23 16:21 Oxygen Delivery Method Room Air 06/18/23 16:21 <Willis Wolf DO - Last Filed: 06/18/23 22:01> Initial Vital Signs Initial Vital Signs: Vital Signs Temperature 97.8 F 06/18/23 16:21 Pulse Rate 73 06/18/23 16:21 Respiratory Rate 18 06/18/23 16:21 Blood Pressure 132/83 06/18/23 16:21 Pulse Oximetry 98 06/18/23 16:21 Oxygen Delivery Method Room Air 06/18/23 16:21 Course <Froy Lee MD - Last Filed: 06/25/23 09:03> Orders Ordered: Discontinued Medications Acetaminophen (Acetaminophen 325 Mg Tablet) 650 mg PO NOW ONE Stop: 06/18/23 18:02 Last Admin: 06/18/23 18:48 Dose: 650 mg Documented By: SIMONE Ondansetron HCl (Ondansetron 4 Mg/2 Ml Inj) 4 mg IV NOW PRN PRN Reason: Nausea And Vomiting Ondansetron HCl (Ondansetron 4 Mg Odt) 4 mg PO NOW PRN PRN Reason: Nausea And Vomiting Vital Signs Vital signs: Vital Signs - 8 hr 06/18/23 16:21 06/18/23 16:38 06/18/23 16:38 Temperature 97.8 F Pulse Rate 73 73 Respiratory Rate 18 Blood Pressure 132/83 127/78 Pulse Oximetry 98 100 Oxygen Delivery Method Room Air 06/18/23 16:45 06/18/23 16:45 06/18/23 16:56 Temperature Pulse Rate 71 Respiratory Rate Blood Pressure 116/69 127/76 Pulse Oximetry 98 Oxygen Delivery Method 06/18/23 16:56 06/18/23 18:38 06/18/23 18:40 Temperature Pulse Rate 73 76 Respiratory Rate Blood Pressure 128/75 Pulse Oximetry 99 99 Oxygen Delivery Method 06/18/23 18:40 06/18/23 18:45 06/18/23 18:45 Temperature Pulse Rate 77 78 Respiratory Rate Blood Pressure 120/71 Pulse Oximetry 99 99 Oxygen Delivery Method <Willis Wolf DO - Last Filed: 06/18/23 22:01> Orders Ordered: Discontinued Medications Acetaminophen (Acetaminophen 325 Mg Tablet) 650 mg PO NOW ONE Stop: 06/18/23 18:02 Last Admin: 06/18/23 18:48 Dose: 650 mg Documented By: SIMONE Ondansetron HCl (Ondansetron 4 Mg/2 Ml Inj) 4 mg IV NOW PRN PRN Reason: Nausea And Vomiting Ondansetron HCl (Ondansetron 4 Mg Odt) 4 mg PO NOW PRN PRN Reason: Nausea And Vomiting Vital Signs Vital signs: Vital Signs - 8 hr 06/18/23 16:21 06/18/23 16:38 06/18/23 16:38 Temperature 97.8 F Pulse Rate 73 73 Respiratory Rate 18 Blood Pressure 132/83 127/78 Pulse Oximetry 98 100 Oxygen Delivery Method Room Air 06/18/23 16:45 06/18/23 16:45 06/18/23 16:56 Temperature Pulse Rate 71 Respiratory Rate Blood Pressure 116/69 127/76 Pulse Oximetry 98 Oxygen Delivery Method 06/18/23 16:56 06/18/23 18:38 06/18/23 18:40 Temperature Pulse Rate 73 76 Respiratory Rate Blood Pressure 128/75 Pulse Oximetry 99 99 Oxygen Delivery Method 06/18/23 18:40 06/18/23 18:45 06/18/23 18:45 Temperature Pulse Rate 77 78 Respiratory Rate Blood Pressure 120/71 Pulse Oximetry 99 99 Oxygen Delivery Method MDM - Abdominal Pain <Froy Lee MD - Last Filed: 06/25/23 09:03> Lab Data 06/18/23 16:52 06/18/23 16:52 Labs: Lab Results 06/18/23 Range/Units 16:52 WBC 9.0 (4.5-11.0) X10^3/uL RBC 4.60 (4.0-5.2) X10^6/uL Hgb 13.3 (12.0-16.0) g/dL Hct 39.3 (36-46) % MCV 85.6 (80-100) fL MCH 28.9 (26-34) PG MCHC 33.8 (30-36) % RDW 14.0 (11.6-14.8) % Plt Count 538 H (150-400) X10^3/uL Neut % (Auto) 66.2 (50-75) % Lymph % (Auto) 23.4 L (25-40) % [place] % (Auto) 8.7 (3-14) % Eos % (Auto) 0.6 L (2-4) % Baso % (Auto) 1.1 (0-2) % Neut # (Auto) 6000 (7728-0472) /uL Lymph # (Auto) 2100 (0466-0277) /uL [place] # (Auto) 800 (0-900) /uL Eos # (Auto) 0 (0-450) /uL Baso # (Auto) 100 (0-100) /uL Sodium 139 (137-145) mmol/L Potassium 4.0 (3.4-5.1) mmol/L Chloride 104 (98-107) mmol/L Carbon Dioxide 26 (22-32) mmol/L BUN 15 (7-17) mg/dL Creatinine 0.83 (0.52-1.04) mg/dL Estimated GFR > 60 (>60) mL/min BUN/Creatinine Ratio 18.1 (6-22) Glucose 102 H (70-100) mg/dL Calcium 9.4 (8.4-10.2) mg/dL Total Bilirubin 0.6 (0.2-1.3) mg/dL AST 36 (14-36) IU/L ALT 23 (<35) IU/L Alkaline Phosphatase 68 (38-126) U/L Total Protein 7.9 (6.3-8.2) g/dL Albumin 4.7 (3.5-5.0) g/dL Globulin 3.2 (1.7-4.1) g/dL Albumin/Globulin Ratio 1.5 (1.0-2.8) Lipase 60 (23-300) U/L Point of care testing: Urine Dip Bedside Urine Glucose Negative Bedside Urine Bilirubin - Negative Bedside Urine Ketone - Negative Urine Specific [place] 1.005 Bedside Urine Occult Blood - Negative Bedside Urine pH 8.0 Bedside Urine Protein - Negative Bedside Urine Urobilinogen - Negative Bedside Urine Nitrite - Negative Bedside Urine Leukocytes - Negative Esterase MDM Narrative Medical decision making narrative: Patient here with . Complains ongoing worsening midline pelvic pain. Patient has history of Giardia and helminth infection March/April of last year. Patient did follow up with Infectious Disease at [facility]. Patient sees primary care doctor Johnson. Patient was on albendazole for treatment. She states she did observe worms in stool passage at 1 point last year. She had traveled with her to remote area of [place] where she contracted the parasites. She has been doing well since treatment. However 3 weeks ago pain returned. No black or bloody stools. No worms noted in stools. History of colonoscopy less than 5 years, no history of diverticulosis or diverticulitis. Patient does have urinary urgency but no dysuria After history and exam CBC CMP O&P for parasites/stool, CT abdomen pelvis normal saline MDM CC: Abdominal pain Complicating co-morbidities: History helminth and Giardia infection Data collected from: Patient and Medical records reviewed: No recent visit for this complaint Differential considered: Includes but not limited to diverticulosis diverticulitis proctitis colitis UTI Exam documented above, pertinent findings include: Lab Test results independently reviewed as above. Pertinent findings: WBC 9.0 hemoglobin 13.3 sodium 139 potassium 4.0 AST 36 ALT 23 Imaging studies independently reviewed: CT abdomen pelvis Consultations: Treatments: Normal saline Re-evaluations: Discussion: Diagnosis: 6:00 p.m.. Jesus: Sign out to Dr Wolf, laboratory studies CT imaging results are pending. <Willis Wolf, DO - Last Filed: 06/18/23 22:01> Lab Data Attestation: I reviewed the patient's lab results. Labs: Lab Results 06/18/23 Range/Units 16:52 WBC 9.0 (4.5-11.0) X10^3/uL RBC 4.60 (4.0-5.2) X10^6/uL Hgb 13.3 (12.0-16.0) g/dL Hct 39.3 (36-46) % MCV 85.6 (80-100) fL MCH 28.9 (26-34) PG MCHC 33.8 (30-36) % RDW 14.0 (11.6-14.8) % Plt Count 538 H (150-400) X10^3/uL Neut % (Auto) 66.2 (50-75) % Lymph % (Auto) 23.4 L (25-40) % [place] % (Auto) 8.7 (3-14) % Eos % (Auto) 0.6 L (2-4) % Baso % (Auto) 1.1 (0-2) % Neut # (Auto) 6000 (7949-6102) /uL Lymph # (Auto) 2100 (7976-8318) /uL [place] # (Auto) 800 (0-900) /uL Eos # (Auto) 0 (0-450) /uL Baso # (Auto) 100 (0-100) /uL Sodium 139 (137-145) mmol/L Potassium 4.0 (3.4-5.1) mmol/L Chloride 104 (98-107) mmol/L Carbon Dioxide 26 (22-32) mmol/L BUN 15 (7-17) mg/dL Creatinine 0.83 (0.52-1.04) mg/dL Estimated GFR > 60 (>60) mL/min BUN/Creatinine Ratio 18.1 (6-22) Glucose 102 H (70-100) mg/dL Calcium 9.4 (8.4-10.2) mg/dL Total Bilirubin 0.6 (0.2-1.3) mg/dL AST 36 (14-36) IU/L ALT 23 (<35) IU/L Alkaline Phosphatase 68 (38-126) U/L Total Protein 7.9 (6.3-8.2) g/dL Albumin 4.7 (3.5-5.0) g/dL Globulin 3.2 (1.7-4.1) g/dL Albumin/Globulin Ratio 1.5 (1.0-2.8) Lipase 60 (23-300) U/L Point of care testing: Urine Dip Bedside Urine Glucose Negative Bedside Urine Bilirubin - Negative Bedside Urine Ketone - Negative Urine Specific [place] 1.005 Bedside Urine Occult Blood - Negative Bedside Urine pH 8.0 Bedside Urine Protein - Negative Bedside Urine Urobilinogen - Negative Bedside Urine Nitrite - Negative Bedside Urine Leukocytes - Negative Esterase Imaging Data CT scan - abdomen/pelvis: Radiologist's Impression: PROCEDURE: CT ABDOMEN PELVIS W CON INDICATIONS: abd pain/ iv contrast only TECHNIQUE: After the administration of intravenous contrast, axial sections acquired from the lung bases to the pubic symphysis. Coronal and sagittal reformats were performed. For radiation dose reduction, the following was used: automated exposure control, adjustment of mA and/or kV according to patient size. COMPARISON: None. FINDINGS: Image quality: Diagnostic. Lower Chest: Small hiatal hernia. ABDOMEN: Liver: Hepatic cyst in segment 7. 9 mm hypoattenuating lesion in segment 7/8 (series 2, image 21). Gallbladder: Cholelithiasis without wall thickening or adjacent fat stranding to suggest acute cholecystitis. Biliary ducts: No biliary dilation. Pancreas: No ductal dilation. Spleen: Size is within normal limits. Adrenal Glands: No adrenal nodules. Kidneys and Ureters: No hydronephrosis. No solid mass. No complex renal cystic lesion which requires follow up. Stomach and Bowel: Normal colonic caliber, without significant wall thickening. Normal appendix. Peritoneum: No abnormal intraperitoneal fluid. No free air. Ventral Wall: No significant ventral hernia. Abdominal Nodes: No retroperitoneal or mesenteric adenopathy by size criteria. Vessels: Aorta and inferior vena cava are normal in size. PELVIS: Pelvic Organs: Unremarkable. Bladder: No bladder wall thickening, accounting for underdistention. Pelvic Nodes: No enlarged lymph nodes. Miscellaneous: No inguinal hernias are seen. Bones: No aggressive osseous abnormality. IMPRESSION: No CT evidence of enterocolitis. Cholelithiasis without wall thickening or adjacent fat stranding to suggest acute cholecystitis. Indeterminate right hepatic solid lesion. Recommend outpatient ultrasound for further characterization in the absence of risk factors or MRI or multiphasic CT in the presence of risk factors. MDM Narrative Medical decision making narrative: Patient here with . Complains ongoing worsening midline pelvic pain. Patient has history of Giardia and helminth infection March/April of last year. Patient did follow up with Infectious Disease at [facility]. Patient sees primary care doctor Johnson. Patient was on albendazole for treatment. She states she did observe worms in stool passage at 1 point last year. She had traveled with her to remote area of [place] where she contracted the parasites. She has been doing well since treatment. However 3 weeks ago pain returned. No black or bloody stools. No worms noted in stools. History of colonoscopy less than 5 years, no history of diverticulosis or diverticulitis. Patient does have urinary urgency but no dysuria After history and exam CBC CMP O&P for parasites/stool, CT abdomen pelvis normal saline MDM CC: Abdominal pain Complicating co-morbidities: History helminth and Giardia infection Data collected from: Patient and Medical records reviewed: No recent visit for this complaint Differential considered: Includes but not limited to diverticulosis diverticulitis proctitis colitis UTI Exam documented above, pertinent findings include: Lab Test results independently reviewed as above. Pertinent findings: WBC 9.0 hemoglobin 13.3 sodium 139 potassium 4.0 AST 36 ALT 23 Imaging studies independently reviewed: CT abdomen pelvis Consultations: Treatments: Normal saline Re-evaluations: Discussion: Diagnosis: 6:00 p.m.. Jesus: Sign out to Dr Wolf, laboratory studies CT imaging results are pending. Dr Wolf: Received turned over. Review patient's history and physical exam. CT scan today did not show any signs of acute pathology. She was unable to produce a stool sample for us. She was tolerating oral intake. There was no indication for antibiotics. No indication for admission to the hospital. Advised that she talk with her primary doctor about potential referral to see Gastroenterology. We discussed the importance of a good bowel regimen. She was given return precautions. She expressed understanding and agreement. Discharge Plan Departure Patient Disposition: Home Clinical Impression: Abdominal pain Qualifiers: Abdominal location: generalized Qualified Code(s): R10.84 - Generalized abdominal pain Instructions: DI for Abdominal Pain-Adult Activity Restrictions/Additional Instructions: I recommend that you contact your primary doctor to discuss the indications for referral to Gastroenterology. Continue to take all of your medications as directed. Recommend a bland diet for the next couple days. Return to the emergency department for new symptoms. Prescriptions: No Action mirtazapine 7.5 mg tablet 7.5 mg PO BEDTIME PRN paroxetine HCl 40 mg tablet 20 mg PO DAILY lisdexamfetamine [Vyvanse] 70 mg capsule 70 mg PO DAILY ondansetron HCl 4 mg tablet 4 mg PO Q8H Qty: 30 3RF epinephrine 0.3 mg/0.3 mL auto-injector 0.3 mg IM Q15M PRN (Reason: anaphylaxis) Qty: 2 0RF Rx Instructions: until response Referrals: Vitaliy Ornelas MD [Primary Care Provider] - Stand Alone Forms: Patient Portal/API
[2023-06-18 17:19] LABS: Alanine Aminotransferase 23 IU/L (<35); Albumin 4.7 g/dL (3.5-5.0); Albumin Globulin Ratio 1.5 (1.0-2.8); Alkaline Phosphatase 68 U/L (38-126); Aspartate Aminotransferase 36 IU/L (14-36); BUN Creatinine Ratio 18.1 (6-22); Bilirubin Total 0.6 mg/dL (0.2-1.3); Blood Urea Nitrogen 15 mg/dL (7-17); Calcium 9.4 mg/dL (8.4-10.2); Carbon Dioxide 26 mmol/L (22-32); Chloride 104 mmol/L (98-107); Estimated Glomerular Filt Rate > 60 mL/min (>60); Globulin 3.2 g/dL (1.7-4.1); Glucose 102 mg/dL (70-100); HEMOLYSIS < 15 (0-50); Lipase 60 U/L (23-300); Sodium 139 mmol/L (137-145); Total Protein 7.9 g/dL (6.3-8.2)
--- NOTE | 2023-06-18 18:00 | DI.CT.S_ITS ---
PROCEDURE: CT ABDOMEN PELVIS W CON INDICATIONS: abd pain/ iv contrast only TECHNIQUE: After the administration of intravenous contrast, axial sections acquired from the lung bases to the pubic symphysis. Coronal and sagittal reformats were performed. For radiation dose reduction, the following was used: automated exposure control, adjustment of mA and/or kV according to patient size. COMPARISON: None. FINDINGS: Image quality: Diagnostic. Lower Chest: Small hiatal hernia. ABDOMEN: Liver: Hepatic cyst in segment 7. 9 mm hypoattenuating lesion in segment 7/8 (series 2, image 21). Gallbladder: Cholelithiasis without wall thickening or adjacent fat stranding to suggest acute cholecystitis. Biliary ducts: No biliary dilation. Pancreas: No ductal dilation. Spleen: Size is within normal limits. Adrenal Glands: No adrenal nodules. Kidneys and Ureters: No hydronephrosis. No solid mass. No complex renal cystic lesion which requires follow up. Stomach and Bowel: Normal colonic caliber, without significant wall thickening. Normal appendix. Peritoneum: No abnormal intraperitoneal fluid. No free air. Ventral Wall: No significant ventral hernia. Abdominal Nodes: No retroperitoneal or mesenteric adenopathy by size criteria. Vessels: Aorta and inferior vena cava are normal in size. PELVIS: Pelvic Organs: Unremarkable. Bladder: No bladder wall thickening, accounting for underdistention. Pelvic Nodes: No enlarged lymph nodes. Miscellaneous: No inguinal hernias are seen. Bones: No aggressive osseous abnormality. IMPRESSION: No CT evidence of enterocolitis. Cholelithiasis without wall thickening or adjacent fat stranding to suggest acute cholecystitis. Indeterminate right hepatic solid lesion. Recommend outpatient ultrasound for further characterization in the absence of risk factors or MRI or multiphasic CT in the presence of risk factors. Dictated by: Stevo Sykes M.D. on 06/18/2023 at 18:20 Approved by: Stevo Sykes M.D. on 06/18/2023 at 18:28
[2023-06-18] MEDS: ACETAMINOPHEN 325 MG TABLET 650 MG PO (18:48)
== END 2023-06-18 19:17 | disposition home or self-care (01) ==
PROVIDERS: Emergency Medicine; Emergency Provider Emergency Medicine; PCP Family Medicine
DX: R10.84 Generalized abdominal pain (principal)
CPT/HCPCS: 36415; 74177; 80053; 81003; 83690; 85025; 99284; Q9967

== ENCOUNTER → 2023-06-24 12:23 | Outpatient (CLI) | payer BC, SELFPAY | LOC: LAB 12:26 | PROVIDERS: PCP Family Medicine; Referring Provider Physician Assistant; Visit Provider Physician Assistant | DX: B89 Unspecified parasitic disease (principal) | CPT/HCPCS: 87169 ==

== ENCOUNTER → 2023-06-29 11:59 | Outpatient (CLI) | payer BC, SELFPAY ==
--- NOTE | 2023-06-29 12:00 | DI.US.S_ITS ---
PROCEDURE: US ABDOMEN COMPLETE INDICATIONS: Cyst vs solid lesion seen on liver TECHNIQUE: Real-time scanning was performed of the abdominal and retroperitoneal organs, with image documentation. COMPARISON: [facility], CT, CT ABDOMEN PELVIS W CON, 06/18/2023, 18:09. FINDINGS: Liver: Liver is normal in size and demonstrates mildly increased echotexture. Portal vein is patent and demonstrates hepatopetal flow. There is 1.3 cm cyst in the right hepatic lobe along the hepatic capsule Gallbladder: There gallstones. No gallbladder wall thickening, pericholecystic fluid or sonographic Haas's sign. Biliary ducts: Intrahepatic bile ducts are non-dilated. Extrahepatic bile duct caliber measures 5.3 mm. Normal is 6-7 mm or less in diameter, or 10 mm or less post-cholecystectomy. Pancreas: Visualized portions of the pancreas are sonographically normal. Spleen: Spleen is normal in size and homogeneous in echotexture. Kidneys: Kidneys are normal in size and echotexture. Right kidney measures 9.4 cm long; left kidney measures 10.8 cm long. No hydronephrosis or nephrolithiasis. No solid masses. Aorta: Visualized aorta is normal in caliber at less than 3 cm. Iliacs: Proximal common iliac arteries are normal in caliber at less than 2.5 cm. IVC: Intrahepatic inferior vena cava is patent. Miscellaneous: No free abdominal fluid. IMPRESSION: 1. Mild diffusely increased hepatic echotexture. This finding is most likely secondary to hepatic fatty infiltration although other hepatocellular disease may have a similar appearance. Recommend clinical correlation. 2. A 1.3 cm subcapsulary cyst in the right hepatic lobe. 3. Cholelithiasis. Dictated by: Aminta Rico M.D. on 06/29/2023 at 14:27 Approved by: Aminta Rico M.D. on 06/29/2023 at 14:30
== END ==
PROVIDERS: PCP Family Medicine; Referring Provider Physician Assistant; Visit Provider Physician Assistant
DX: K76.89 Other specified diseases of liver (principal); K80.20 Calculus of gallbladder without cholecystitis without obstruction; R16.0 Hepatomegaly, not elsewhere classified; R10.9 Unspecified abdominal pain
CPT/HCPCS: 76700

== ENCOUNTER → 2023-06-30 13:16 | Outpatient (CLI) | payer BC, SELFPAY | PROVIDERS: PCP Family Medicine; Referring Provider Physician Assistant; Visit Provider Physician Assistant | DX: B89 Unspecified parasitic disease (principal) | CPT/HCPCS: 87169 ==

== ENCOUNTER → 2023-07-24 08:45 | Outpatient (CLI) | payer BC, SELFPAY ==
--- NOTE | 2023-07-24 08:46 | DI.NM.S_ITS ---
PROCEDURE: NM HIDA WITH CCK PHARMACEUTICAL: 5.4 mCi Tc-99m mebrofenin IV; 1.5 mcg CCK IV. INDICATIONS: Abdominal pain - worse with eating TECHNIQUE: Following intravenous administration of Tc-99m mebrofenin, sequential anterior abdominal images were obtained. To evaluate the contractile response of the gallbladder in response to Cholecystokinin (CCK), sincalide (0.02 ?g/kg) was administered by slow intravenous infusion approximately 60 minutes after the administration of the radiopharmaceutical. Sequential imaging was continued for 30 minutes after the start of CCK infusion. Gallbladder ejection fraction was calculated. COMPARISON: None. FINDINGS: Biliary scan: There is normal tracer uptake and excretion by the liver. There is normal visualization of the intrahepatic ducts, common bile duct, and gallbladder. There is normal tracer transit into the duodenum. CCK stimulation: There is normal contractile response of the gallbladder to CCK infusion. The calculated gallbladder ejection fraction is 76 percent; normal values are above 35%. It has been shown that any patient abdominal pain after CCK administration is related to the rate of CCK injection, rather than to any underlying gallbladder disease (Clinical Nuclear Medicine 2012; 37: 63-70. Journal of Nuclear Medicine 2014; 55: 1-9). IMPRESSION: No evidence of acute cholecystitis. Normal ejection fraction of gallbladder. Dictated by: Thomas Moses M.D. on 07/24/2023 at 10:39 Approved by: Thomas Moses M.D. on 07/24/2023 at 10:44
== END ==
LOC: NUCM 08:45
PROVIDERS: PCP Family Medicine; Referring Provider Physician Assistant; Visit Provider Physician Assistant
DX: K80.20 Calculus of gallbladder without cholecystitis without obstruction (principal); R10.9 Unspecified abdominal pain
CPT/HCPCS: 78227; A9537; J2805

== ENCOUNTER → 2023-08-17 08:43 | Outpatient (CLI) | payer BC, SELFPAY ==
--- NOTE | 2023-08-17 08:43 | DI.US.S_ITS ---
PROCEDURE: US ABDOMEN LIMITED INDICATIONS: liver cyst TECHNIQUE: Real-time scanning was performed of the abdominal and retroperitoneal organs, with image documentation. COMPARISON: [facility], CT, CT ABDOMEN PELVIS W CON, 06/18/2023, 18:09. [facility], US, US ABDOMEN COMPLETE, 06/29/2023, 12:37. FINDINGS: Liver: Measures 16.3 cm. Echogenicity is within normal limits. Portal vein demonstrates hepatopetal flow. -Echogenic focus in the lateral subcapsular left lobe of the liver measuring 0.7 cm. -Benign cyst in the subcapsular right lobe of the liver measuring 1.8 cm. -No additional lesion seen. Gallbladder: Nondilated. Gallstone measuring 2.4 cm. Normal gallbladder wall thickness. No pericholecystic fluid. Negative sonographic Haas's sign. Biliary ducts: Intrahepatic bile ducts are non-dilated. Extrahepatic bile duct caliber measures 5 mm. Normal is 6-7 mm or less in diameter, or 10 mm or less post-cholecystectomy. Pancreas: Visualized portions of the pancreas are sonographically normal. Miscellaneous: No free abdominal fluid. IMPRESSION: 1. Echogenic focus in the left lobe of the liver measuring 0.7 cm. Statistically this most likely represents a benign hemangioma. This is indeterminate on ultrasound. No correlate is seen on the prior portal venous phase CT. 2. The previously seen CT subcentimeter hypodense focus in the right lobe of the liver is not identified on ultrasound. 3. Benign cyst in the right lobe of the liver. 4. No acute cholecystitis. [place] gallstone. Liver MRI with IV contrast would be helpful for further evaluation to exclude liver lesion and confirmation of the suspected hemangioma in the left lobe of the liver. Dictated by: Claudio Ortiz M.D. on 08/17/2023 at 10:22 Approved by: Claudio Ortiz M.D. on 08/17/2023 at 10:31
== END ==
LOC: US 08:43
PROVIDERS: PCP Family Medicine; Referring Provider Family Medicine; Visit Provider Family Medicine
DX: K76.89 Other specified diseases of liver (principal); B89 Unspecified parasitic disease; K80.20 Calculus of gallbladder without cholecystitis without obstruction
CPT/HCPCS: 76705

== ENCOUNTER 2023-10-05 10:24 | Emergency (ER) | payer BC, SELFPAY ==
[2023-10-05 11:00] VITALS: BP 135/82; PULSE 79; RESP 18; TEMP 36.4; O2SAT 96; BMI 27.1
[2023-10-05 11:36] LABS: Appearance Urine UA CLEAR; Bilirubin Urine UA NEGATIVE (NEGATIVE); Color Urine UA YELLOW; Glucose Urine UA NEGATIVE (Negative); Ketones Urine UA NEGATIVE (NEGATIVE); Leukocyte Esterase Urine UA NEGATIVE (NEGATIVE); Nitrite Urine UA NEGATIVE (Negative); Occult Blood Urine UA NEGATIVE (Negative); Protein Urine UA NEGATIVE (Negative); Specific Gravity Urine UA <=1.005 (1.000-1.035); Urobilinogen Urine UA 0.2 E.U./dL (0.2)
[2023-10-05 11:37] LABS: pH Urine UA 6.5 (4.5-8.0)
[2023-10-05 11:50] LABS: Bacteria Urine Occasional (0-1); Culture Indicated Urine Cult Not Indicated; RBC Urine 0-1/HPF (0-5/HPF); Squamous Epithelial Cell Urine 0-1 /HPF (0-5/HPF); Urine Volume 10mL (spun); WBC Urine 0-1/HPF (0-5/HPF)
[2023-10-05 13:01] VITALS: BP 127/61; PULSE 67; O2SAT 99
--- NOTE | 2023-10-05 13:20 | ED.GIBLEED ---
HPI - GI Bleed <Herminio Johnson PA-C - Last Filed: 10/05/23 13:29> General Chief complaint: GI Bleed Stated complaint: Symptoms of Upper GI Bleed Time Seen by Provider: 10/05/23 11:39 Source: patient Mode of arrival: Ambulatory History of Present Illness HPI Narrative: 53-year-old female presents to the ED due to concern for a GI bleed. Patient states that she has been having, pasty stools since yesterday. Patient denies abdominal pain, fever, chills, nausea, vomiting, lightheadedness, dizziness, syncope. Patient has a history of parasitic infection in March/April of 2023. Patient has a follow-up with Infectious diseases at [facility] in November. Related Data Home Medications Medication Instructions Recorded Confirmed mirtazapine 7.5 mg tablet 7.5 mg PO BEDTIME PRN 01/21/19 08/31/23 lisdexamfetamine 70 mg capsule 70 mg PO DAILY 04/07/23 08/31/23 (Vyvanse) paroxetine HCl 20 mg tablet 20 mg PO DAILY 07/14/23 08/31/23 Previous Rx's Medication Instructions Recorded epinephrine 0.3 mg/0.3 mL 0.3 mg (0.3 mL) IM Q15M PRN 01/20/19 injection, auto-injector anaphylaxis 3 doses #2 ea ondansetron HCl 4 mg tablet 4 mg PO Q8H #30 tabs 06/20/23 dicyclomine 10 mg capsule See Rx Instructions PO TID #60 caps 07/14/23 triclabendazole 250 mg tablet 875 mg (3.5 x 250 mg) PO Q12H #7 10/02/23 tabs Allergies Allergy/AdvReac Type Severity Reaction Status Date / Time bee venom protein (honey bee) Allergy Anaphylaxis Verified 08/31/23 15:00 Review of Systems <Herminio Johnson PA-C - Last Filed: 10/05/23 13:29> Constitutional Constitutional: Denies chills, Denies fatigue, Denies fever(s), Denies frequent falls, Denies lethargy and Denies weakness Eyes Eyes: Denies change in vision, Denies eye discharge, Denies irritation and Denies loss of vision ENT Ears, Nose, Mouth, and Throat: Denies change in voice, Denies dizziness, Denies neck pain, Denies sore throat and Denies throat swelling Cardiovascular Cardiovascular: Denies chest pain, Denies irregular heart rhythm, Denies lightheadedness, Denies palpitations, Denies dyspnea, Denies dyspnea on exertion and Denies orthopnea Respiratory Respiratory: Denies cough, Denies dyspnea, Denies dyspnea on exertion and Denies wheezing Gastrointestinal Gastrointestinal: Denies abdominal pain, Reports melena, Denies change in bowel habits, Denies diarrhea, Denies nausea and Denies vomiting Musculoskeletal Musculoskeletal: Denies neck pain and Denies numbness Integumentary/Breasts Skin/Breast: Denies pruritus, Denies erythema, Denies rash and Denies wounds Neurologic Neurologic: Denies behavioral changes, Denies confusion, Denies dizziness, Denies frequent falls, Denies loss of vision, Denies numbness and Denies weakness Psychiatric Psychiatric: Denies anxiety, Denies behavioral changes, Denies confusion, Denies depression, Denies homicidal ideation and Denies suicidal ideation Endocrine Endocrine: Denies fatigue, Denies flushing and Denies palpitations Hematologic/Lymphatic Hematologic/Lymphatic: Denies easy bruising Allergic/Immunologic Allergic/Immunologic: Denies urticaria, Denies throat swelling and Denies wheezing Patient History <Herminio Johnson PA-C - Last Filed: 10/05/23 13:29> Medical History Vaginal delivery Healthy adult Surgical History No pertinent past surgical history Social History marital status: Smoking Status: Never smoker alcohol intake: current substance use type: does not use Smoking Status: Never smoker alcohol intake frequency: a few times a week Substance Use Type: does not use Exam <Herminio Johnson PA-C - Last Filed: 10/05/23 13:29> Narrative Exam Narrative: Const General:?cooperative, healthy appearing and comfortable [facility] Head:?normal to inspection Ears:?hearing grossly normal bilaterally Nose:?external nose normal Face and sinus:?normal facial exam and sinuses nontender Mouth:?oral mucosae normal Throat:?posterior oropharynx normal Eyes General:?appearance normal, both eyes and all related structures Neck Neck:?normal visual inspection and no lymphadenopathy noted Resp Effort & Inspection:?normal respiratory effort Auscultation:?clear to auscultation bilaterally Cardio Rate:?regular rate Rhythm:?regular rhythm GI Abdomen is soft, nondistended, nontender to palpation. Neuro General:?patient alert, patient awake and patient oriented x3 Initial Vital Signs Initial Vital Signs: Vital Signs Temperature 97.6 F 10/05/23 11:00 Pulse Rate 79 10/05/23 11:00 Respiratory Rate 18 10/05/23 11:00 Blood Pressure 135/82 10/05/23 11:00 Pulse Oximetry 96 10/05/23 11:00 Oxygen Delivery Method Room Air 10/05/23 11:00 <Jeff Youssef MD - Last Filed: 10/05/23 19:08> Initial Vital Signs Initial Vital Signs: Vital Signs Temperature 97.6 F 10/05/23 11:00 Pulse Rate 79 10/05/23 11:00 Respiratory Rate 18 10/05/23 11:00 Blood Pressure 135/82 10/05/23 11:00 Pulse Oximetry 96 10/05/23 11:00 Oxygen Delivery Method Room Air 10/05/23 11:00 Course <Herminio Johnson PA-C - Last Filed: 10/05/23 13:29> Orders Ordered: ED Orders 10/05/23 11:00 Urinalysis and Microscopic Stat Vital Signs Vital signs: Vital Signs - 8 hr 10/05/23 13:01 Pulse Rate 67 Blood Pressure 127/61 Pulse Oximetry 99 Oxygen Delivery Method Room Air <Jeff Youssef MD - Last Filed: 10/05/23 19:08> Orders Ordered: ED Orders 10/05/23 11:00 Urinalysis and Microscopic Stat Vital Signs Vital signs: Vital Signs - 8 hr 10/05/23 13:01 Pulse Rate 67 Blood Pressure 127/61 Pulse Oximetry 99 Oxygen Delivery Method Room Air MDM - GI Bleed <Herminio Johnson PA-C - Last Filed: 10/05/23 13:29> Lab Data Labs: Lab Results 10/05/23 Range/Units 11:00 Urine Color Yellow Urine Appearance Clear Urine pH 6.5 (4.5-8.0) Ur Specific [place] <=1.005 (1.000-1.035) Urine Protein Negative (Negative) Urine Glucose (UA) Negative (Negative) g/dL Urine Ketones Negative (NEGATIVE) Urine Occult Blood Negative (Negative) Urine Nitrate Negative (Negative) Urine Bilirubin Negative (NEGATIVE) Urine Urobilinogen 0.2 (0.2) E.U./dL Ur Leukocyte Esterase Negative (NEGATIVE) Urine RBC 0-1/hpf (0-5/HPF) Urine WBC 0-1/hpf (0-5/HPF) Ur Squamous Epith Cells 0-1 /hpf (0-5/HPF) Urine Bacteria Occasional (0-1) (None) Ur Culture Indicated? Cult not indicated Vol Urine Centrifuged 10ml (spun) Point of Care Testing Stool Occult Blood Negative MDM Narrative Medical decision making narrative: 53-year-old female presents to the ED due to concern for a GI bleed. Patient was able to provide a sample today, it was guaiac negative. Discussed findings with patient. Patient was reassured that she did not have a GI bleed. Given that patient has no other acute symptoms, recommend she continue to monitor and return to the ED if she has worsening symptoms. No further testing indicated at this time. Patient agrees to follow-up with her PCP as soon as possible. Patient also has a infectious diseases consult with the [facility] in November. ED return precautions discussed in detail with patient. Patient verbalized understanding. Medical records reviewed: Yes <Jeff Youssef MD - Last Filed: 10/05/23 19:08> Lab Data Labs: Lab Results 10/05/23 Range/Units 11:00 Urine Color Yellow Urine Appearance Clear Urine pH 6.5 (4.5-8.0) Ur Specific [place] <=1.005 (1.000-1.035) Urine Protein Negative (Negative) Urine Glucose (UA) Negative (Negative) g/dL Urine Ketones Negative (NEGATIVE) Urine Occult Blood Negative (Negative) Urine Nitrate Negative (Negative) Urine Bilirubin Negative (NEGATIVE) Urine Urobilinogen 0.2 (0.2) E.U./dL Ur Leukocyte Esterase Negative (NEGATIVE) Urine RBC 0-1/hpf (0-5/HPF) Urine WBC 0-1/hpf (0-5/HPF) Ur Squamous Epith Cells 0-1 /hpf (0-5/HPF) Urine Bacteria Occasional (0-1) (None) Ur Culture Indicated? Cult not indicated Vol Urine Centrifuged 10ml (spun) Point of Care Testing Stool Occult Blood Negative Discharge Plan Departure Patient Disposition: Home Clinical Impression: Dark stools Instructions: DI for Abdominal Pain-Adult Activity Restrictions/Additional Instructions: You were evaluated in the ED today for suspicion of a GI bleed due to dark stools. Your stool was tested and was negative for blood. Please continue to monitor your symptoms, return to the ED if you experience abdominal pain, lightheadedness, chest pain, shortness of breath, worsening symptoms. Please follow-up with a GI specialist as soon as possible. Please also follow-up with the infectious disease specialist as you have scheduled in November. Please follow-up with your PCP as soon as possible for further evaluation. Prescriptions: No Action mirtazapine 7.5 mg tablet 7.5 mg PO BEDTIME PRN lisdexamfetamine [Vyvanse] 70 mg capsule 70 mg PO DAILY ondansetron HCl 4 mg tablet 4 mg PO Q8H Qty: 30 3RF triclabendazole 250 mg tablet 875 mg PO Q12H Qty: 7 0RF Rx Instructions: This was verbally approved with the pharmacist Bernabe at [facility] paroxetine HCl 20 mg tablet 20 mg PO DAILY dicyclomine 10 mg capsule See Rx Instructions PO TID Qty: 60 3RF Rx Instructions: Take 1-2 capsules up to 3 times a day as needed for stomach pain epinephrine 0.3 mg/0.3 mL auto-injector 0.3 mg IM Q15M PRN (Reason: anaphylaxis) Qty: 2 0RF Rx Instructions: until response Referrals: Vitaliy Ornelas MD [Primary Care Provider] - Stand Alone Forms: Patient Portal/API ED Sign-out <Jeff Youssef MD - Last Filed: 10/05/23 19:08> Cosign ED Attending She Attestation: I was immediately available in the department for consultation. I reviewed the documentation. Supervised by Jeff Youssef MD.
== END 2023-10-05 13:05 | disposition home or self-care (01) ==
PROVIDERS: Emergency Medicine; Emergency Provider Student in an Organized Health Care Education/Training Program; PCP Family Medicine
DX: K92.1 Melena (principal)
CPT/HCPCS: 81001; 82272; 99282

== ENCOUNTER → 2023-11-19 11:58 | Outpatient (CLI) | payer BC, SELFPAY | PROVIDERS: PCP Family Medicine; Referring Provider Family Medicine; Visit Provider Family Medicine | DX: B82.9 Intestinal parasitism, unspecified (principal) | CPT/HCPCS: 87177 ==

== ENCOUNTER 2023-11-21 17:59 | Emergency (ER) | payer BC, SELFPAY ==
[2023-11-21 18:22] VITALS: BP 120/83; PULSE 81; RESP 16; TEMP 36.8; O2SAT 95; BMI 26.6
--- NOTE | 2023-11-21 20:32 | ED_ITS ---
HPI - Abdominal Pain General Chief Complaint: Abdominal Pain Stated Complaint: abd pain Time Seen by Provider: 11/21/23 20:03 Source: patient Mode of arrival: Family Vehicle History of Present Illness HPI narrative: 53-year-old female presents for generalized abdominal pain. Patient states that in March of last year patient was exposed to parasites while on a trip to [place]. She states that she had previous tests positive for parasites in her stool. She states that she underwent multiple rounds of praziquantel but continues to shed flukes and parasites. 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 She has a pending appointment with another infectious disease doctor in 5 days, but due to her abdominal pain and cramping she was here today to see if any additional medications can be prescribed for her pain. Previously received benefit from dicyclomine, however she no longer feels like this medication is helping her. She questions if gabapentin may help her symptoms. Related Data Home Medications Medication Instructions Recorded Confirmed mirtazapine 7.5 mg tablet 7.5 mg PO BEDTIME PRN 01/21/19 10/08/23 lisdexamfetamine 70 mg capsule 70 mg PO DAILY 04/07/23 10/08/23 (Vyvanse) paroxetine HCl 20 mg tablet 20 mg PO DAILY 07/14/23 10/08/23 Previous Rx's Medication Instructions Recorded epinephrine 0.3 mg/0.3 mL 0.3 mg (0.3 mL) IM Q15M PRN 01/20/19 injection, auto-injector anaphylaxis 3 doses #2 ea dicyclomine 10 mg capsule See Rx Instructions PO TID #60 caps 07/14/23 gabapentin 300 mg capsule 300 mg PO TID #60 caps 11/21/23 hyoscyamine sulfate 0.125 mg tablet 0.125 mg PO BID-QID PRN dyspepsia 11/21/23 #30 tabs Allergies Allergy/AdvReac Type Severity Reaction Status Date / Time bee venom protein (honey bee) Allergy Anaphylaxis Verified 10/08/23 14:35 Patient History Medical History Vaginal delivery Healthy adult Surgical History No pertinent past surgical history Social History marital status: Smoking Status: Never smoker alcohol intake: current substance use type: does not use Smoking Status: Never smoker alcohol intake frequency: a few times a week Substance Use Type: does not use Exam Initial Vital Signs Initial Vital Signs: Vital Signs Temperature 98.3 F 11/21/23 18:22 Pulse Rate 81 11/21/23 18:22 Respiratory Rate 16 11/21/23 18:22 Blood Pressure 120/83 11/21/23 18:22 Pulse Oximetry 95 11/21/23 18:22 Oxygen Delivery Method Room Air 11/21/23 18:22 Const: Awake, alert, no acute distress, nontoxic appearing Cardiac: regular rate, regular rhythm RESP: unlabored, speaking in complete sentences GI: Soft, nontender, nondistended, no rebound, no guarding Skin: Warm, Dry, intact, no rashes Neuro: AO x3, CN II-XII grossly intact, moves all extremities Course Orders Ordered: Discontinued Medications Gabapentin (Gabapentin 600 Mg Tablet) 600 mg PO NOW ONE Stop: 11/21/23 23:03 Last Admin: 11/21/23 23:12 Dose: 600 mg Documented By: Ketorolac Tromethamine (Ketorolac 30 Mg/Ml Vial) 15 mg IV NOW ONE Stop: 11/21/23 22:52 Last Admin: 11/21/23 23:01 Dose: Not Given Documented By: Vital Signs Vital signs: Vital Signs - 8 hr 11/21/23 23:11 Temperature 98.2 F Pulse Rate 65 Respiratory Rate 18 Blood Pressure 154/98 H Pulse Oximetry 98 Oxygen Delivery Method Room Air MDM - Abdominal Pain Lab Data 11/21/23 20:18 11/21/23 20:18 Labs: Lab Results 11/21/23 Range/Units 20:18 WBC 10.5 (4.5-11.0) X10^3/uL RBC 4.67 (4.0-5.2) X10^6/uL Hgb 13.5 (12.0-16.0) g/dL Hct 40.4 (36-46) % MCV 86.4 (80-100) fL MCH 28.8 (26-34) PG MCHC 33.4 (30-36) % RDW 14.0 (11.6-14.8) % Plt Count 551 H (150-400) X10^3/uL Neut % (Auto) 59.5 (50-75) % Lymph % (Auto) 24.5 L (25-40) % [place] % (Auto) 10.0 (3-14) % Eos % (Auto) 5.1 H (2-4) % Baso % (Auto) 0.9 (0-2) % Neut # (Auto) 6200 (8902-0941) /uL Lymph # (Auto) 2600 (6380-2951) /uL [place] # (Auto) 1000 H (0-900) /uL Eos # (Auto) 500 H (0-450) /uL Baso # (Auto) 100 (0-100) /uL Sodium 138 (137-145) mmol/L Potassium 3.9 (3.4-5.1) mmol/L Chloride 104 (98-107) mmol/L Carbon Dioxide 32 (22-32) mmol/L BUN 17 (7-17) mg/dL Creatinine 0.90 (0.52-1.04) mg/dL Estimated GFR > 60 (>60) mL/min BUN/Creatinine Ratio 18.9 (6-22) Glucose 94 (70-100) mg/dL Calcium 9.2 (8.4-10.2) mg/dL Total Bilirubin 0.4 (0.2-1.3) mg/dL AST 52 H (14-36) IU/L ALT 37 H (<35) IU/L Alkaline Phosphatase 80 (38-126) U/L Total Protein 7.4 (6.3-8.2) g/dL Albumin 4.4 (3.5-5.0) g/dL Globulin 3.0 (1.7-4.1) g/dL Albumin/Globulin Ratio 1.5 (1.0-2.8) Lipase 75 (23-300) U/L Point of care testing: Urine Dip Bedside Urine Glucose Negative Bedside Urine Bilirubin - Negative Bedside Urine Ketone - Negative Urine Specific [place] 1.010 Bedside Urine Occult Blood - Negative Bedside Urine pH 6.0 Bedside Urine Protein - Negative Bedside Urine Urobilinogen - Negative Bedside Urine Nitrite - Negative Bedside Urine Leukocytes - Negative Esterase MDM Narrative Medical decision making narrative: Persistent abdominal pain and concern for persistent shedding of liver flukes. Patient has pending appointment in less than 5 days with new infectious disease specialist. Abdomen is soft, no significant tenderness, no focal findings. I recommended CT scan, however patient declined stating that she recently had an MRI up and [place] of her abdomen. Patient showed the results to me through her MyChart portal that showed a gallstone and slightly fatty liver, but no other acute findings. Patient showed me a sample of the rocks that she has passed in her stool which appears to have small eric in it, however I do not know the significance of this. Patient states she is primarily here for gabapentin to see if this helps her abdominal pain. Patient given prescription of gabapentin, plan to switch dicyclomine 2 hyoscyamine to see if this helps her abdominal cramping. Medication sent to pharmacy of choice. Discharge Plan Departure Patient Disposition: Home Clinical Impression: Abdominal pain Instructions: DI for Abdominal Pain-Adult Activity Restrictions/Additional Instructions: HYOSCYAMINE AND GABAPENTIN HAS BEEN SENT TO YOUR PHARMACY. IF YOU TAKE HYOSCYAMINE DO NOT TAKE THE DICYCLOMINE. KEEP YOUR INFECTIOUS DISEASE APPOINTMENT SCHEDULED. Prescriptions: New hyoscyamine sulfate 0.125 mg tablet 0.125 mg PO BID-QID PRN (Reason: dyspepsia) Qty: 30 0RF gabapentin 300 mg capsule 300 mg PO TID Qty: 60 0RF No Action mirtazapine 7.5 mg tablet 7.5 mg PO BEDTIME PRN lisdexamfetamine [Vyvanse] 70 mg capsule 70 mg PO DAILY paroxetine HCl 20 mg tablet 20 mg PO DAILY dicyclomine 10 mg capsule See Rx Instructions PO TID Qty: 60 3RF Rx Instructions: Take 1-2 capsules up to 3 times a day as needed for stomach pain epinephrine 0.3 mg/0.3 mL auto-injector 0.3 mg IM Q15M PRN (Reason: anaphylaxis) Qty: 2 0RF Rx Instructions: until response Referrals: Vitaliy Ornelas MD [Primary Care Provider] - Stand Alone Forms: Patient Portal/API
[2023-11-21 20:34] LABS: Add Manual Diff / Slide Review NO; Basophils Absolute Auto 100 /uL (0-100); Basophils Percent Auto 0.9 % (0-2); Eosinophils Absolute Auto 500 /uL (0-450); Eosinophils Percent Auto 5.1 % (2-4); Hematocrit 40.4 % (36-46); Hemoglobin 13.5 g/dL (12.0-16.0); Lymphocytes Absolute Auto 2600 /uL (1100-4500); Lymphocytes Percent Auto 24.5 % (25-40); Mean Corpuscular HGB Conc 33.4 % (30-36); Mean Corpuscular Hemoglobin 28.8 PG (26-34); Mean Corpuscular Volume 86.4 fL (80-100); Monocytes Absolute Auto 1000 /uL (0-900); Neutrophils Absolute Auto 6200 /uL (1500-7000); Neutrophils Percent Auto 59.5 % (50-75); Platelet Count 551 X10^3/uL (150-400); Red Blood Cell Count 4.67 X10^6/uL (4.0-5.2); White Blood Cell Count 10.5 X10^3/uL (4.5-11.0)
[2023-11-21 20:43] LABS: Alanine Aminotransferase 37 IU/L (<35); Albumin 4.4 g/dL (3.5-5.0); Albumin Globulin Ratio 1.5 (1.0-2.8); Alkaline Phosphatase 80 U/L (38-126); Aspartate Aminotransferase 52 IU/L (14-36); BUN Creatinine Ratio 18.9 (6-22); Bilirubin Total 0.4 mg/dL (0.2-1.3); Blood Urea Nitrogen 17 mg/dL (7-17); Calcium 9.2 mg/dL (8.4-10.2); Carbon Dioxide 32 mmol/L (22-32); Chloride 104 mmol/L (98-107); Estimated Glomerular Filt Rate > 60 mL/min (>60); Glucose 94 mg/dL (70-100); HEMOLYSIS < 15 (0-50); Lipase 75 U/L (23-300); Potassium 3.9 mmol/L (3.4-5.1); Sodium 138 mmol/L (137-145); Total Protein 7.4 g/dL (6.3-8.2)
[2023-11-21 23:11] VITALS: BP 154/98; PULSE 65; RESP 18; TEMP 36.8; O2SAT 98
[2023-11-21] MEDS: GABAPENTIN 600 MG TABLET PO (23:12)
== END 2023-11-21 23:17 | disposition home or self-care (01) ==
PROVIDERS: Emergency Provider Emergency Medicine; PCP Family Medicine
DX: R10.84 Generalized abdominal pain (principal)
CPT/HCPCS: 36415; 80053; 81003; 83690; 85025; 99284